=== PATIENT | female | born 1990 | race Caucasian/White ===

== ENCOUNTER 2018-10-04 17:39 | Emergency (ER) | payer OTHER ==
[~2018-10-04] VITALS: Ht 152.4 cm; Wt 64.4 kg
[2018-10-04 17:53] VITALS: BP 127/85
--- NOTE | 2018-10-04 17:59 | NUR ---
patient to lobby with to wait for available room. vss. nad. ua sample given.
--- NOTE | 2018-10-04 20:39 | NUR ---
PT TAKEN TO [facility] FROM [facility]
--- NOTE | 2018-10-04 20:47 | NUR ---
PT RETURN FROM XRAY TO BED 6
--- NOTE | 2018-10-04 20:50 | NUR ---
PATIENT PRESENTS TO ED WITH CMPLAINT OF CHEST PAIN X 1 DAY. PT STATES PAIN LEVEL IS 7/10. DENIES N/V/D; SKIN IS PINK/WARM/DRY; AAOX4 WITH EVEN AND STEADY GAIT; LUNGS CLEAR BL; HR EVEN AND REGULAR; PT DENIES ANY FEVER, CP, SOB, OR COUGH AT THIS TIME; VSS; PATIENT POSITIONED FOR COMFORT; HOB ELEVATED; BEDRAILS UP X2; BED DOWN. ER MD MADE AWARE OF PT STATUS.
[2018-10-04] MEDS ORDERED: KETOROLAC 30 MG/ML VIAL IM ONE (21:00)
[2018-10-04 21:47] VITALS: BP 127/85
--- NOTE | 2018-10-04 21:47 | NUR ---
Patient discharged with v/s stable. Written and verbal after care instructions given and explained. Patient verbalized understanding. Ambulatory with steady gait. All questions addressed prior to discharge. Advised to follow up with PMD.MEDICATION PRESCRIPTION MOTRIN WAS GIVEN.
== END 2018-10-04 21:47 | disposition home or self-care (01) ==
LOC: MED 17:39
DX: R07.89 Other chest pain (principal)
CPT/HCPCS: 71045; 81002; 81025; 93005; 96372; 99284; J1885

== ENCOUNTER 2018-11-11 13:44 | Emergency (ER) | payer OTHER ==
[~2018-11-11] VITALS: Ht 152.4 cm; Wt 61.9 kg
[2018-11-11 14:03] VITALS: BP 131/79
[2018-11-11 18:08] VITALS: BP 118/78
== END 2018-11-11 18:08 | disposition home or self-care (01) ==
LOC: MED 13:44
DX: F41.9 Anxiety disorder, unspecified (principal)
CPT/HCPCS: 70490; 81002; 81025; 99284

== ENCOUNTER 2019-12-15 12:06 | Emergency (ER) | payer SELFPAY ==
[~2019-12-15] VITALS: Ht 152.4 cm; Wt 58.5 kg
[2019-12-15 12:16] VITALS: BP 145/79
--- NOTE | 2019-12-15 13:03 | NUR ---
PATIENT AMBULATED WITH STEADY GAIT TO BED 4.
--- NOTE | 2019-12-15 13:08 | NUR ---
L SIDED RIB PAIN. NO INJURY/TRAUMA. PATIENT STATES PAIN OF 5/10 AT THIS TIME; VSS; PATIENT POSITIONED FOR COMFORT; HOB ELEVATED; BEDRAILS UP X1; BED DOWN. ER MD MADE AWARE OF PT STATUS.
[2019-12-15 13:30] VITALS: BP 145/79
--- NOTE | 2019-12-15 13:30 | NUR ---
Patient discharged with v/s stable. Written and verbal after care instructions given and explained. Patient verbalized understanding. Ambulatory with steady gait. All questions addressed prior to discharge. Advised to follow up with PMD.
== END 2019-12-15 13:30 | disposition home or self-care (01) ==
LOC: MED 12:06
DX: N64.4 Mastodynia (principal); R03.0 Elevated blood-pressure reading, without diagnosis of hypertension
CPT/HCPCS: 99283

== ENCOUNTER 2023-04-12 00:34 | Emergency (ER) | payer OTHER ==
[~2023-04-12] VITALS: Ht 152.4 cm; Wt 65.8 kg
[2023-04-12 01:09] VITALS: BP 100/68
--- NOTE | 2023-04-12 01:45 | NUR ---
ASSUMED CARE , PT C/O LLQ KEIRA RAD TO HER BACK , NO N/V OR FEVER, NO DYSURIA REPORTED
[2023-04-12 01:47] LABS: APPEARANCE,URINE CLEAR (CLEAR); BILIRUBIN,URINE NEGATIVE (NEGATIVE); BLOOD, URINE NEGATIVE (NEGATIVE); COLOR,URINE YELLOW (YELLOW); LEUKOCYTE ESTERASE ,URINE NEGATIVE (NEGATIVE); NITRITE, URINE NEGATIVE (NEGATIVE); UGLUCOSE NEGATIVE (NEGATIVE)
[2023-04-12 02:37] LABS: BASOPHILS # (AUTO) 0.1 K/uL (0.00-0.22); BASOPHILS % (AUTO) 0.9 % (0.0-2.0); EOSINOPHILS # (AUTO) 0.6 K/uL (0-0.4); EOSINOPHILS % (AUTO) 6.9 % (0.0-4.0); HEMATOCRIT 31.5 % (36-48); HEMOGLOBIN 10.7 g/dL (12.0-16.0); LYMPHOCYTES # (AUTO) 2.6 K/uL (2.5-16.5); LYMPHOCYTES % (AUTO) 30.7 % (20.5-51.1); MEAN CORPUSCULAR HEMOGLOBIN 30 pg (27-31); MEAN CORPUSCULAR HGB CONC 34 g/dL (33-37); MEAN CORPUSCULAR VOLUME 88.3 fL (80-94); MONOCYTES # (AUTO) 0.6 K/uL (0.8-1.0); MONOCYTES % (AUTO) 6.8 % (1.7-9.3); NEUTROPHILS # (AUTO) 4.6 K/uL (1.8-7.7); NEUTROPHILS % (AUTO) 54.7 % (42.2-75.2); PLATELET COUNT (AUTO) 370 K/uL (140-450); RED BLOOD CELL COUNT(AUTO) 3.57 MIL/uL (4.20-5.40); RED CELL DISTRIBUTION WIDTH 17.2 % (11.6-13.7); WHITE BLOOD COUNT (AUTO) 8.4 K/uL (4.8-10.8)
[2023-04-12] MEDS ORDERED: PNV1TABL8 PO (03:29)
--- NOTE | 2023-04-12 04:13 | NUR ---
Patient discharged with v/s stable. Written and verbal after care instructions given and explained. Patient alert, oriented and verbalized understanding of instructions. Ambulatory with to car. All questions addressed prior to discharge. ID band removed. Patient advised to follow up with PMD. Rx of given. Patient educated on indication of medication including possible reaction and side effects. Opportunity to ask questions provided and answered.
== END 2023-04-12 04:11 | disposition home or self-care (01) ==
LOC: MED 00:34
DX: D64.9 Anemia, unspecified (principal); Z34.90 Encounter for supervision of normal pregnancy, unspecified, unspecified trimester; Z79.899 Other long term (current) drug therapy; Z98.890 Other specified postprocedural states
CPT/HCPCS: 36415; 76817; 81003; 81025; 84702; 85025; 86900; 86901; 99284; Q0092

== ENCOUNTER 2023-04-14 22:47 | Emergency (ER) | payer OTHER ==
[~2023-04-14 22:47] MED LIST: PNV1TABL8 PO
--- NOTE | 2023-04-14 22:54 | NUR ---
Patient left before triage.
--- NOTE | 2023-04-14 22:55 | NUR ---
PER ADMITTING YAHIR, PT LEFT LOBBY AT [phone]
== END 2023-04-14 22:55 | disposition left against medical advice (07) ==
LOC: MED 22:47
DX: R10.2 Pelvic and perineal pain (principal); Z53.21 Procedure and treatment not carried out due to patient leaving prior to being seen by health care provider